=== PATIENT | female | born 1990 | race Caucasian/White ===

== ENCOUNTER 2021-08-02 15:53 | Emergency (ER) | payer MEDICARE, MEDICAID ==
[~2021-08-02] VITALS: Ht 160 cm; Wt 50.0 kg
[2021-08-02 16:22] LABS: APPEARANCE,URINE TURBID (CLEAR); GLUCOSE, URINE (UA) NEGATIVE (NEGATIVE); KETONES,URINE TRACE mg/dL (NEGATIVE); LEUKOCYTE ESTERASE ,URINE MODERATE (NEGATIVE); NITRATE,URINE NEGATIVE (NEGATIVE); OCCULT BLOOD,URINE LARGE (NEGATIVE); PROTEIN,URINE SEE CONFIRM (NEGATIVE); UROBILINOGEN,URINE 0.2 mg/dL (<=1.0)
[2021-08-02 16:24] LABS: BILIRUBIN,URINE PRELIM. POSITIVE (NEGATIVE)
[2021-08-02 16:30] LABS: SULFOSALICYLIC ACID,URINE 3+ (Negative)
[2021-08-02 16:31] LABS: BACTERIA,URINE Many /HPF (None Seen); RBC,URINE >100 /HPF (0-2); SQUAMOUS EPITHELIAL CELL,UR Moderate /LPF (None Seen)
[2021-08-02] MEDS ORDERED: CEPHALEXIN MONOHYDRATE 500 MG CAPSULE PO ONE (17:15)
[2021-08-02 17:24] LABS: BASOPHILS % (AUTO) 0.2 % (0.0-2.0); EOSINOPHILS % (AUTO) 0.1 % (1.0-6.0); HEMATOCRIT 37.7 % (36-46); HEMOGLOBIN 12.5 g/dL (12.0-16.0); LYMPHOCYTES # (AUTO) 0.4 K/uL (1.0-4.8); LYMPHOCYTES % (AUTO) 8.6 % (22.0-44.0); MEAN CORPUSCULAR HGB CONC 33.3 G/dL (31.0-37.0); MEAN CORPUSCULAR VOLUME 81 fL (80-100); MONOCYTES # (AUTO) 0.4 K/uL (0.1-1.0); MONOCYTES % (AUTO) 7.9 % (2.0-9.0); NEUTROPHILS # (AUTO) 3.9 K/uL (1.8-7.7); NEUTROPHILS % (AUTO) 83.2 % (40.0-70.0); PLATELET COUNT (AUTO) 222 K/uL (150-450); RED BLOOD CELL COUNT(AUTO) 4.64 MIL/uL (4.00-5.20); RED CELL DISTRIBUTION WIDTH 13.6 % (11.5-14.5)
[2021-08-02 18:01] LABS: ALBUMIN 1.5 g/dL (3.4-5.0); BILIRUBIN,TOTAL 0.2 mg/dL (0.1-1.0); CREATININE 1.4 mg/dL (0.60-1.30); TOTAL PROTEIN, SERUM 4.2 g/dL (6.4-8.2)
[2021-08-02 18:12] LABS: CALCIUM, TOTAL 5.2 mg/dL (8.8-10.5)
[2021-08-02] MEDS ORDERED: POTASSIUM CHLORIDE 20 MEQ ER TABLET PO ONE (19:15)
[2021-08-02] MEDS ORDERED: DEXTROSE 50%-WATER 25 GM/50 ML SYRINGE IVP PRN (19:30)
[2021-08-02] MEDS ORDERED: INSULIN LISPRO 100 UNITS/ML SQ PRN (19:30)
[2021-08-02] MEDS ORDERED: ACETAMINOPHEN 325 MG TABLET PO PRN (20:00)
[2021-08-02] MEDS ORDERED: CefTRIAXone 1 GM/DEXTROSE 50 ML IV SCH (20:00)
[2021-08-02] MEDS ORDERED: ONDANSETRON HCL 4 MG/2 ML VIAL IVP PRN (20:00)
[2021-08-02 22:16] LABS: COVID AG,FIA SOURCE NASAL SWAB
[2021-08-02] MEDS ORDERED: ATEN-72 PO (22:54)
[2021-08-02] MEDS ORDERED: OMEG10005 PO (22:54)
[2021-08-02] MEDS ORDERED: BUSP10TA23 PO (22:54)
[2021-08-02] MEDS ORDERED: ESCI5SOL2 PO (22:54)
[2021-08-02] MEDS ORDERED: LISI2.5T91 PO (22:54)
[2021-08-02] MEDS ORDERED: TACR0.5C21 PO (22:54)
[2021-08-02] MEDS ORDERED: MYCO180T12 PO (22:54)
[2021-08-02] MEDS ORDERED: CHOL400T56 PO (22:54)
[2021-08-02] MEDS ORDERED: PRED5TAB2 PO (22:54)
[2021-08-02] MEDS ORDERED: FAMO20 PO (22:54)
[2021-08-02] MEDS ORDERED: ONDA-104 PO (22:54)
[2021-08-02] MEDS ORDERED: ESCI-8 PO (22:54)
[2021-08-02] MEDS ORDERED: MORPHINE SULFATE 4 MG/ML SYRINGE IVP PRN (23:30)
[2021-08-02] MEDS ORDERED: MORPHINE SULFATE 2 MG/ML SYRINGE IVP PRN (23:30)
[2021-08-03] VITALS: BP 117/65
[2021-08-03] MEDS ORDERED: HEPARIN SODIUM,PORCINE 5,000 UNITS/ML VIAL SQ SCH
[2021-08-03] MEDS ORDERED: PIPERACILLIN/TAZO 3.375 GM/D5W 50 ML IV SCH (03:00)
[2021-08-03] MEDS ORDERED: ATENOLOL 50 MG TABLET PO SCH (09:00)
[2021-08-03] MEDS ORDERED: MYCOPHENOLATE SODIUM 180 MG DR TABLET PO SCH (09:00)
[2021-08-03] MEDS ORDERED: TACROLIMUS 0.5 MG CAPSULE PO SCH (09:00)
[2021-08-03] MEDS ORDERED: ESCITALOPRAM OXALATE 10 MG TABLET PO SCH (09:00)
[2021-08-03] MEDS ORDERED: CHOLECALCIFEROL (VIT D3) 400 UNITS [10 MCG] TABLET PO SCH (09:00)
[2021-08-03] MEDS ORDERED: FAMOTIDINE 20 MG TABLET PO SCH (09:00)
[2021-08-03] MEDS ORDERED: PredniSONE 5 MG TABLET PO SCH (09:00)
[2021-08-03] MEDS ORDERED: BusPIRone HCL 10 MG TABLET PO SCH (09:00)
== END 2021-08-03 03:01 | disposition left against medical advice (07) ==
LOC: EMS 16:00 → UNDOADMIN 23:01 → 5N 23:01 → EMS 08-03 01:30
DX: N10 Acute pyelonephritis (principal); N39.0 Urinary tract infection, site not specified; E87.6 Hypokalemia; E83.51 Hypocalcemia; N28.9 Disorder of kidney and ureter, unspecified; Z94.0 Kidney transplant status; Z20.822 Contact with and (suspected) exposure to COVID-19
CPT/HCPCS: 36415; 74176; 80053; 80197; 81001; 82962; 83605; 84703; 85025; 87040; 87086; 87426; 96365; 96366; 96372; 96375; 99285; J0696; J1644; J2270; J2405; 81002; J2543; J7518